=== PATIENT | male | born 1970 | race Caucasian/White ===

== ENCOUNTER 2024-07-17 09:01 | Emergency (ER) | payer BC, SELFPAY ==
[2024-07-17 09:09] VITALS: BP 139/92; PULSE 79; RESP 16; TEMP 36.3; O2SAT 97; BMI 28.8
== END 2024-07-17 10:32 | disposition left against medical advice (07) ==
LOC: ED 10:52
DX: M25.561 Pain in right knee (principal); R07.82 Intercostal pain; M54.2 Cervicalgia; M25.511 Pain in right shoulder; M25.512 Pain in left shoulder; Z53.21 Procedure and treatment not carried out due to patient leaving prior to being seen by health care provider; V89.2XXA Person injured in unspecified motor-vehicle accident, traffic, initial encounter
CPT/HCPCS: 99281

== ENCOUNTER 2024-07-28 16:51 | Observation (INO) | payer SELFPAY ==
[2024-07-28 16:54] VITALS: BP 151/93; PULSE 69; RESP 20; TEMP 36.6; O2SAT 99
[2024-07-28 16:56] VITALS: BMI 28.7
--- NOTE | 2024-07-28 16:57 | ED.RN ---
no stroke alert per Dr. Kirkpatrick
--- NOTE | 2024-07-28 17:04 | ED.RN ---
C/O MUFFLED RIGHT EAR, DIZZY-WALKING TO THE RIGHT SIDE, RIGHT VISION CHANGES.
--- NOTE | 2024-07-28 17:10 | CT_ITS ---
PROCEDURE: CT head without IV contrast CTA head and neck with IV contrast REASON FOR EXAM: Ataxia, dizziness TECHNIQUE: Multiple contiguous unenhanced images of the brain were obtained without the administration of intravenous contrast. Postcontrast images of the head and neck were also obtained with two-dimensional and three-dimensional MIP coronal and sagittal reformatted images. Low-dose imaging technique was utilized. COMPARISON: None. FINDINGS: CT head. No evidence of acute intracranial hemorrhage, midline shift or mass effect. No definite CT evidence of acute territorial cortical infarction. No hydrocephalus. Cerebral volume is age-appropriate. Globes are intact. Paranasal sinuses and mastoid air cells are relatively clear. CTA head and neck. Patent three-vessel arch. No significant subclavian artery stenosis. Right common, internal and external carotid arteries are without significant stenosis or occlusion. Left common, internal and external carotid arteries are without significant stenosis or occlusion. Vertebral and basilar arteries are without significant stenosis or occlusion. [id number] is patent and without large vessel occlusion, high-grade stenosis or aneurysm. No pathologic enhancement. No filling defects in the dural venous sinuses. 15 mm left thyroid nodule. No suspicious neck mass or adenopathy. Lung apices are clear. No acute osseous abnormality. CT/CTA Head AND Neck W/ Contrast IMPRESSION: 1. No acute intracranial abnormality. If there is persistent clinical concern for acute ischemia, MRI is most sensitive. 2. No large vessel high-grade stenosis or occlusion. 3. Left thyroid nodule measuring 15 mm. Recommend further assessment with none mergent ultrasound. One or more dose reduction techniques were used (e.g., Automated exposure contr ol, adjustment of the mA and/or kV according to patient size, use of iterative reconstruction technique). Reading Location: [facility]
--- NOTE | 2024-07-28 17:10 | EKG12_ITS ---
Test Reason : DIZZINESS Blood Pressure : */* mmHG Vent. Rate : 67 BPM Atrial Rate : 67 BPM P-R Int : 206 ms QRS Dur : 96 ms QT Int : 398 ms P-R-T Axes : 46 21 18 degrees QTcB Int : 420 ms Normal sinus rhythm Cannot rule out Inferior infarct , age undetermined Abnormal ECG Confirmed by Du Delaney ([id number]), editor greeting card YOLANDA PIERSON ([id number]) on 07/30/2024 10:14:14 AM Referred By: Confirmed By: Du Delaney
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
[2024-07-28 17:25] LABS: Absolute Lymphocyte Count 1.24 X10^3/uL (0.83-4.51); Absolute Neutrophil Count 7.9 X10^3/uL (2.0-7.7); Basophil# 0.03 X10^3/uL; Basophil% 0.3 % (0-1); Eosinophil# 0.05 X10^3/uL; Eosinophils% 0.5 % (0-5); Hematocrit 42.9 % (40-54); Hemoglobin 14.7 g/dL (13.0-16.5); Lymphocyte # 1.24 X10^3/ul (0.83-4.51); Mean Corp Hgb Conc 34.3 g/dL (32-36); Mean Corpuscular Hgb 28.9 pg (27.0-32.0); Mean Corpuscular Volume 84.3 fL (80-94); Mean Platelet Vol. 8.6 fl (6.2-12.0); Monocyte# 0.34 X10^3/uL; Monocyte% 3.6 % (0-10); NRBC Flagged by Analyzer 0 % (0-5); Neutrophil # 7.87 X10^3/uL (2.7-7.7); Neutrophil % 82.3 % (47-70); Platelet Count 290 K/mm3 (150-450); RBC Distribution Width CV 12.7 % (11.6-14.6); RBC Distribution Width SD 38.7 fl (35.1-43.9); Red Blood Count 5.09 M/mm3 (4.6-6.2); White Blood Count 9.6 K/mm3 (4.4-11.0)
[2024-07-28 17:45] LABS: Anion Gap 6 (5-15); BUN 23 mg/dL (7-18); Calcium,Total 9.3 mg/dL (8.5-10.1); Chloride 103 mmol/L (98-107); Creatinine, Serum 0.85 mg/dL (0.70-1.30); EST Glomerular Filtration Rate 99 mL/min (>60); Est Glom Filt Rate - Afr Amer 120 mL/min (>60); Estimated Creatinine Clearance 107.92 ml/min; Glucose 119 mg/dL (74-106); Potassium 3.7 mmol/L (3.5-5.1); Sodium Level 138 mmol/L (136-145)
[2024-07-28 18:30] VITALS: BP 151/94; PULSE 78; RESP 16; O2SAT 94
[2024-07-28 18:55] VITALS: BP 140/89; PULSE 78; RESP 16; TEMP 36.8; O2SAT 96
[2024-07-28 19:00] VITALS: BP 158/90; PULSE 78; O2SAT 98
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
--- NOTE | 2024-07-28 20:00 | CASEMGMT ---
Care Management Face to Face with patient for initial transition planning/care coordination assessment in the ED.? This insurance underwriter sales introduced self and role at [facility]. Patient alert and oriented. Patient willing to participate in assessment and is able to answer all questions appropriately.? Care providers, pharmacy, and demographics verified. Patient?s was also present which patient consented to. Admitting Diagnosis: Dizziness, visual disturbance of right eye, and ataxic gate. Other diagnosis history: Including but may not be limited to: Right arm amputation below the elbow, hx of hernia repair and hx of acute appendicitis. PCP: Not established and not interested in securing. Specialists: Dr. Bethel Figueredo; has to see once every 5 years due to the amputation. [facility]. Insurance: Not insured and not interested.? Patient and described a [employer] sharing that will assist. Prescription Benefit: None and not interested. Living Will/HPOA: ?Patient stated he has a living will and identified his as the HPOA. LNOK: Patient?s .? Patient also has 8 children; 5 boys and 3 girls. Living Arrangements: Patient currently lives with his and 2 children.? One, age 16 and one, age 24, who is engaged to be in 4 weeks. Transportation: Patient drives.? No barriers identified. DME: Prosthetic for right arm. HHC: No history and not needed. SNF/Rehab: No history.? Patient went to outpatient rehab once, he believes to have been through [facility] that was supposed to help with the prosthetic however, it was decided after the first appointment that patient didn?t need any additional follow-up. Community Resources: ?[facility] History: Denied. Patient goals: Patient wishes to discharge home when medically ready, denies need for home health care at this time. Patient denies any further needs or concerns at this time. Disposition Plan: admission to acute; RN CM/SW to follow for discharge planning needs that may arise. Ely Jacobo, [employer] INTER[employer], BEHAVIORAL HEALTH PROFESSIONAL
[2024-07-28 20:21] VITALS: BMI 27.9
[2024-07-28 20:47] VITALS: BP 148/66; PULSE 68; RESP 14; TEMP 36.5; O2SAT 97
[2024-07-28] MEDS: 0.9% Normal Saline (1000mL) 1,000 ML 75 ML IV (21:00)
[2024-07-28] MEDS: Aspirin 81 MG TAB.CHEW PO (21:00)
[2024-07-28 22:27] VITALS: BMI 27.9
[2024-07-29 00:40] VITALS: BP 122/71; PULSE 66; RESP 14; TEMP 36.5; O2SAT 96
[2024-07-29 04:40] VITALS: BP 139/82; PULSE 71; RESP 14; TEMP 36.4; O2SAT 96
[2024-07-29 05:12] LABS: Absolute Lymphocyte Count 1.75 X10^3/uL (0.83-4.51); Basophil# 0.03 X10^3/uL; Basophil% 0.5 % (0-1); Eosinophil# 0.09 X10^3/uL; Eosinophils% 1.4 % (0-5); Hematocrit 42.4 % (40-54); Hemoglobin 14.2 g/dL (13.0-16.5); Lymphocyte # 1.75 X10^3/ul (0.83-4.51); Lymphocyte % 27.6 % (19-41); Mean Corp Hgb Conc 33.5 g/dL (32-36); Mean Corpuscular Hgb 28.7 pg (27.0-32.0); Mean Corpuscular Volume 85.7 fL (80-94); Mean Platelet Vol. 8.8 fl (6.2-12.0); Monocyte# 0.46 X10^3/uL; Monocyte% 7.3 % (0-10); NRBC Flagged by Analyzer 0 % (0-5); Platelet Count 274 K/mm3 (150-450); RBC Distribution Width CV 12.9 % (11.6-14.6); RBC Distribution Width SD 39.8 fl (35.1-43.9); Red Blood Count 4.95 M/mm3 (4.6-6.2); White Blood Count 6.3 K/mm3 (4.4-11.0)
[2024-07-29 05:41] LABS: Anion Gap 6 (5-15); BUN 18 mg/dL (7-18); BUN/Creat Ratio 23.9 RATIO (10-20); Calcium,Total 8.9 mg/dL (8.5-10.1); Chloride 108 mmol/L (98-107); Cholesterol 277 mg/dL (200); Creatinine, Serum 0.75 mg/dL (0.70-1.30); EST Glomerular Filtration Rate 114 mL/min (>60); Est Glom Filt Rate - Afr Amer 139 mL/min (>60); Estimated Creatinine Clearance 120.79 ml/min; Glucose 97 mg/dL (74-106); High Density Lipoprotein 57 mg/dL; Potassium 3.9 mmol/L (3.5-5.1); Sodium Level 138 mmol/L (136-145); Triglycerides 103 mg/dL; Very Low Density Lipoprotein 21 mg/dL (5-40)
[2024-07-29 07:56] VITALS: BP 147/91; PULSE 74; RESP 16; TEMP 37.1; O2SAT 97
[2024-07-29 08:00] VITALS: PULSE 85
[2024-07-29 08:39] LABS: Hemoglobin A1c 5.5 % (3.8-5.6)
[2024-07-29] MEDS: Aspirin 81 MG TAB.CHEW PO (09:12)
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
--- NOTE | 2024-07-29 13:17 | DCINST_ITS ---
Discharge Instructions Diet Discharge Diet: No restrictions DC O2, CPAP, BIPAP needs Home O2 Discharge instructions: No Dressing / Incision Discharge Activity: No Restrictions Follow Up Care Test Results: Test results from this visit will be discussed in further detail at your follow- up appointment, if applicable. Discharge Plan Admission Admit Date/Time: 07/28/24 19:09 Primary Reason for Your Visit: dizziness, vision changes Attending Provider: Al Mendez Primary Care Provider: Care Physician,No Primary Consulting Providers: Scar No; Chanel John; Karen Rice; Jie Chahal; Naya Sabillon; Sal Rosenberg; Flores Strickland; Dimitrios Galvan; Morris Pacheco; Rolf Pereira; Mindy Grover; Dmitry Plasencia; Erin Juan; Erica Akbar; Nilda Weinberg; Pradeep Wood; Garcia Sneed; Adithya Britt; Saundra Staples; Florentin Lynch; Radha Cowan Instructions Additional Instructions / Restrictions: Please make a follow-up appointment with ophthalmology shortly after discharge for your right eye subconjunctival hemorrhage. Otherwise follow-up with your primary care doctor as needed. Discharge Orders/Prescriptions Referrals / Follow Up: [facility] [Outside] Care Physician,No Primary [Primary Care Provider] - Disposition Disposition (needs filled in before D/C Order can be placed): Home, Self Care
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
[2024-07-29 13:21] VITALS: BP 138/76; PULSE 84; RESP 15; TEMP 36.6; O2SAT 97
[2024-07-29 14:00] VITALS: BP 138/76; PULSE 77; RESP 15; TEMP 36.6; O2SAT 96
== END 2024-07-29 13:21 | disposition home or self-care (01) ==
LOC: ED 17:40 → PCU 19:23
PROVIDERS: Physician Assistant; Admitting Provider Internal Medicine; Emergency Provider Emergency Medicine; Visit Provider Hospitalist
DX: R42 Dizziness and giddiness (principal); E04.1 Nontoxic single thyroid nodule; H53.9 Unspecified visual disturbance; E78.5 Hyperlipidemia, unspecified; S80.01XD Contusion of right knee, subsequent encounter; H11.31 Conjunctival hemorrhage, right eye; Z89.201 Acquired absence of right upper limb, unspecified level; V59.5 Passenger in pick-up truck or van injured in collision with other and unspecified motor vehicles in traffic accident; Z66 Do not resuscitate
CPT/HCPCS: 70496; 70498; 80048; 80061; 83036; 85025; 93005; 96360; 96361; 97162; 97166; 99221; 99284; Q9967; A4216; G0378